=== PATIENT | male | born 1980 | race African-American/Black ===

== ENCOUNTER 2016-06-25 10:58 | Emergency (ER) | payer SELFPAY ==
[~2016-06-25] VITALS: Ht 170.2 cm; Wt 94.6 kg
[2016-06-25 11:01] VITALS: Ht 170.2 cm; Wt 94.6 kg
--- OUTSIDE RECORDS SUMMARY | 2016-06-25 11:02 | XMS REPORT | Continuity of Care Document ---
Demographics Preferred Language Unknown Marital Status Unknown Restorationist Affiliation Unknown Race Unknown Ethnic Group Unknown Author Author [facility] Organization [facility] Address Unknown Phone Unavailable Allergies Active Description Code Type Severity Reaction Onset Reported/Identified Relationship to Patient Clinical Status Yes No Known Medication Allergies NKMA N/A N/A 10/20/2013 Medications Problems Date Dx Coded Attending Type Code Diagnosis Diagnosed By 08/20/2014 Reason 883.0 OPEN WOUND OF FINGERS, WITHOUT MENTION OF COMPLICATION 08/20/2014 Final E849.0 HOME ACCIDENTS 08/20/2014 Final E920.8 ACCIDENTS CAUSED BY OTHER SPECIFIED CUTTING AND PIERCING INSTRUMENTS OR OBJ 08/20/2014 Final V06.1 Need for prophylactic vaccination and inoculation against Diptheria-tetanus Procedures Results Encounters ACCT No. Visit Date/Time Discharge Status Pt. Type Provider Facility Loc./Unit Complaint [id number] 06/28/2014 20:25:00 Document Registration
--- OUTSIDE RECORDS SUMMARY | 2016-06-25 11:02 | XMS REPORT | Referral Summary ---
Author Author [facility] Organization [facility] Address Unknown Phone Unavailable Care Team Providers Care Facilities Custodian Name Role Phone No PCP, Pt States Primary Care Physician [phone] Encounter VC Date(s): 06/28/14 - 06/28/14 [facility] [address] [place] [address] [phone] Discharge Diagnosis: Finger laceration Final: OPEN WOUND OF FINGERS, WITHOUT MENTION OF COMPLICATION Final: Need for prophylactic vaccination and inoculation against Diptheria- tetanus-pertussis, combined [DTP] [DTaP] Final: ACCIDENTS CAUSED BY OTHER SPECIFIED CUTTING AND PIERCING INSTRUMENTS OR OBJECTS Final: HOME ACCIDENTS Discharge Disposition: 01-Home or Self Care Attending Physician: Nathaniel Murphy MD Admitting Physician: Nathaniel Murphy MD Vital Signs Most recent to 1 oldest [Reference Range]: Temperature Oral 36.9 degC [35.8-37.3 degC] (06/28/14 8:27 PM) Peripheral Pulse 92 bpm Rate [60-100 bpm] (06/28/14 8:27 PM) Respiratory Rate 16 br/min [14-20 br/min] (06/28/14 8:27 PM) Blood Pressure 143/83 mmHg [90-140/60-90 mmHg] *HI* (06/28/14 8:27 PM) SpO2 97 % (06/28/14 8:27 PM) Problem List No Known Problems Allergies, Adverse Reactions, Alerts No Known Medication Allergies Medications Mobic 15 mg oral tablet 1 tabs, Oral, Daily, # 30 tabs, 0 Refill(s) Start Date: 10/20/13 Status: Ordered Results No data available for this section Immunizations Vaccine Date Refusal Reason tetanus/diphth/pertuss (Tdap) adult/adol1 06/28/14 tetanus-diphth toxoids (Td) adult/adol 12/07/05 1Early/Late Reason: Patient Not Available/Off Unit Procedures Procedure Date Related Diagnosis Body Site Simple repair of superficial wounds of scalp, 06/28/14 neck, axillae, external genitalia, trunk and/or extremities (including hands and feet); 2.5 cm or less Hand repair1 1left hand operation Social History Social History Type Response Smoking Status Current every day smoker; Type: Cigarettes; Tobacco use per day: Pack Assessment and Plan No data available for this section
[2016-06-25] MEDS ORDERED: NO HOME MEDICATIONS (11:12)
--- NOTE | 2016-06-25 11:23 | NUR ---
XRAY PORTABLE XRAY AT BEDSIDE.
--- NOTE | 2016-06-25 11:37 | DI ---
Indication: ITS.REASON: left middle finger pain PROCEDURE: HAND LEFT 3 VIEW: Encounter: Initial Comparison: None Findings: There is no acute fracture, dislocation or malalignment identified. Chronic appearing deformity of the third metacarpal. This is reportedly due to old trauma. Impression: No acute osseous abnormality. .
--- NOTE | 2016-06-25 12:00 | NUR ---
STATUS PT RESTING IN CART LOOKING AT PHONE AND ICE PACK CONTINUED TO L MIDDLE FINGER. REPORTS SLIGHT IMPROVEMENT IN PAIN WITH ICE TO 7/10. DENIES FURTHER NEEDS AT THIS TIME. CALL LIGHT WITHIN REACH, WILL CONTINUE TO MONITOR.
--- OUTSIDE RECORDS SUMMARY | 2016-06-25 12:11 | XMS REPORT | Continuity of Care Document ---
Demographics Preferred Language Unknown Marital Status Unknown Adventism Affiliation Unknown Race Unknown Ethnic Group Unknown Author Author [facility] Organization [facility] Address Unknown Phone Unavailable Allergies Active Description [...] Status Pt. Type Provider Facility Loc./Unit Complaint [id number] 06/28/2014 20:25:00 Document Registration
--- NOTE | 2016-06-25 12:12 | NUR ---
BAKARI DAVID, MRI SUPERVISOR AT BEDSIDE.
--- NOTE | 2016-06-25 12:19 | ERPDOC ---
Departure Disposition Decision Date: June 25, 2016 Disposition Decision Time: 12:16 Disposition: 01 DISCHARGED HOME, SELF-CARE Impression Impression Impression: Primary Impression: Sprain, finger Encounter type: initial encounter Finger: middle finger Sprain of finger site: interphalangeal joint Laterality: left Qualified Codes: S63.633A - Sprain of interphalangeal joint of left middle finger, initial encounter Severity: Moderate Condition: Stable Seen By: Mid-level only Patient Instructions: Finger Sprain (ED) Problems/Meds/Labs Reviewed?: Yes Medications reviewed and manag: Yes Additional Instructions: Carmen tape the middle finger to the ring finger as needed for comfort. Ice and elevate the hand until the swelling is improved. If not improving at all then please follow up with your primary care provider for reevaluation. Follow up care ordered?: Yes Mental Status: Alert, Oriented HPI General Chief Complaint: Upper Extremity Injury Stated Complaint: LEFT HAND MIDDLE FINGER Time Seen by Provider: 12:07 Source: patient Exam Limitations: no limitations HPI Hand/Forearm Initial Comments He was playing football yesterday and tripped over a player. He fell and hit the left middle finger on the ground. Has had pain and swelling in the PIP joint since then. Wanted to get an xray to make sure that it is not broken. Does have full ROM to the finger. Denies any numbness/tingling. Occurred At: home Onset: Rapid Duration: 12-24 hrs Severity: moderate Method of Injury: direct blow Associated Symptoms: pain with flexion, swelling, DENIES: bruising, numbness, pain with extension, pain with grasp, pallor, red streaks, redness, weakness Allergies: Coded Allergies: No Known Allergies (Unverified , 06/25/16) Past History Past Medical History Pt denies signifigant [facility] Surgical History Denies Surgeries Family History Family History: Negative Social History Tobacco Usage: none Alcohol Usage: none Drug Usage: none IV Drug Use: No Review of Systems Constitutional Constitutional: DENIES: chills, dizziness, fatigue, fever, weakness Musculoskeletal General: joint pain (left middle finger PIP joint), joint swelling (left middle finger PIP joint), pain (left middle finger , PIP joint), tenderness ( left PIP joint) Integumentary Skin: DENIES: color change, rash Neurological General: DENIES: numbness, tingling Exam General General Nourishment: well nourished, well developed, appears stated age, no acute distress, adult General Body Habitus: well groomed Vital Signs: RN Vital Signs have been reviewed: Yes, Temperature: 98.2, Source : Oral, Heart Rate: 78, Respiratory Rate: 14, BP: 145/77, Pulse Oximetry: 96 Height (Feet): 5 Height (Inches): 7.00 [place]rak Hand/Forearm Hand/Forearm : Upper Extremity: Left Elbow: extension intact, flexion intact, NOT FOUND: deformity, ecchymosis, erythema, laceration, swelling, tender Forearm: pronation intact, supination intact, NOT FOUND: deformity, ecchymosis, erythema, laceration, swelling, tender Wrist: ROM intact, NOT FOUND: deformity, ecchymosis, erythema, snuff box tenderness, swelling, tender, thenar eminence tender Hand: NOT FOUND: deformity, ecchymosis, erythema, laceration, swelling, tender Fingers: cap refill <2sec ea digit, soft touch intact, swelling (left middle finger), NOT FOUND: deformity, ecchymosis, erythema, impaired abduction, impaired adduction, impaired extension, impaired flexion, impaired grasp, laceration, nail avulsion, rotational deformity, subungual hematoma, tender ( left middle finger PIP joint) Radial Pulse: 2+ Neurologic RN Documented GCS Eye Opening: Verbal: Motor: Total: Differential Diagnoses Considering: Contusion, Dislocation, Fracture, Sprain, Strain Progress Results/Orders Orders Procedure Category Date Status Time Hand Left 3 View RAD 06/25/16 Resulted Progress Progress No fracture noted on xray today. Will have him carmen tape the finger. Follow up with PCP if not improving at all. Xray Xray : Reason for Exam: left finger injury Xray: Finger(s) L Interpretation: Normal ANTONETTE DAVID APRN June 25, 2016 12:19
[2016-06-25 12:26] VITALS: BP 133/78; PULSE 72; RESP 14; TEMP 98.2; O2SAT 98
--- NOTE | 2016-06-25 12:26 | NUR ---
DISCHARGE WRITTEN INSTRUCTIONS REVIEWED AND SENT WITH PT. PT VERBALIZES UNDERSTANDING OF DI, DENIES QUESTIONS. REPORTS PAIN 08/30. PT AMBULATES TO EX6 WITH STEADY GAIT TO WAIT FOR FAMILY MEMBER TO BE DISCHARGED AT THIS TIME.
== END 2016-06-25 12:26 | disposition home or self-care (01) ==
LOC: ED 10:58
DX: S63.633A Sprain of interphalangeal joint of left middle finger, initial encounter (principal); W03.XXXA Other fall on same level due to collision with another person, initial encounter; Y93.61 Activity, american tackle football; Y92.321 Football field as the place of occurrence of the external cause; Y99.8 Other external cause status